=== PATIENT | male | born 1955 | race Caucasian/White ===

== ENCOUNTER 2017-05-06 15:34 | Observation (INO) | payer MEDICARE ==
[~2017-05-06] VITALS: Ht 172.7 cm; Wt 74.8 kg
[2017-05-06] MEDS ORDERED: MORPHINE SULFATE 4 MG/ML CPJ (NOT FOR IM USE) IV STA (18:30)
[2017-05-06] MEDS ORDERED: LORAZEPAM 1MG TABLET PO ONE (18:30)
[2017-05-06] MEDS ORDERED: SODIUM CHLORIDE 0.9% 1,000 ML IV ONE (18:30)
[2017-05-06] MEDS ORDERED: ONDANSETRON HCL 4MG/2ML VIAL IV STA (18:30)
[2017-05-06] MEDS ORDERED: ASPIRIN 81MG TABLET PO STA (18:30)
[2017-05-06 19:04] LABS: BASOPHILS % 0.9 % (0.0-2.0); EOSINOPHILS % 1.4 % (0.0-5.0); HEMATOCRIT. 46.2 % (42.0-52.0); HEMOGLOBIN. 15.6 g/dL (14.0-18.0); LYMPHOCYTES % 15.2 % (20.0-50.0); MEAN CORPUSCULAR HEMOGLOBIN 30.9 pg (28.0-32.0); MEAN CORPUSCULAR VOLUME 91.3 fL (80.0-94.0); MEAN PLATELET VOLUME 7.6 fl (7.4-10.4); MONOCYTES % 8.3 % (2.0-8.0); NEUTROPHILS % 74.2 % (40.0-76.0); PLATELET 330 x1000/uL (130-400); RED BLOOD CELL COUNT 5.06 mill/uL (4.7-6.1); RED CELL DISTRIBUTION WIDTH 13.6 % (11.6-14.6)
[2017-05-06 19:08] LABS: CHLORIDE 105 mEq/L (98-107)
[2017-05-06 19:13] LABS: CARBON DIOXIDE 28 mEq/L (21-32)
[2017-05-06 19:18] LABS: INR 1.1; PARTIAL THROMBOPLASTIN TIME 25.6 sec (23.4-31.0)
[2017-05-06 19:20] LABS: TROPONIN I < 0.02 ng/mL (0.00-0.04)
[2017-05-07] VITALS (8 sets, daily range): BP systolic 136–153; BP diastolic 82–101
[2017-05-07] MEDS ORDERED: ACETAMINOPHEN 325MG TABLET PO NR (01:15)
[2017-05-07] MEDS ORDERED: HYDROCODONE/ACETAMINOPHEN 5/325MG TABLET PO PRN (01:45)
[2017-05-07] MEDS: METOPROLOL TARTRATE 50MG TABLET PO SCH ×2 (02:04→08:22)
[2017-05-07 02:33] LABS: CREATINE KINASE 291 IU/L (39-308); TROPONIN I < 0.02 ng/mL (0.00-0.04)
[2017-05-07 02:34] LABS: CREATINE KINASE MB FRACTION 5.6 ng/mL (0.5-3.6)
[2017-05-07] MEDS: PANTOPRAZOLE 40MG DR TABLET PO SCH ×2 (06:54→08:22)
[2017-05-07 07:31] LABS: CREATINE KINASE 241 IU/L (39-308); TROPONIN I < 0.02 ng/mL (0.00-0.04)
[2017-05-07] MEDS ORDERED: ASPIRIN 325MG EC TABLET PO SCH (09:00)
[2017-05-07] MEDS ORDERED: ENOXAPARIN 40MG/0.4ML SYR SUBCUT SCH (09:00)
[2017-05-07] MEDS ORDERED: REGADENOSON 0.4 MG/5 ML IV NR (12:30)
== END 2017-05-07 20:00 | disposition left against medical advice (07) ==
LOC: ER 15:44 → 8WST 21:34 → INTOOBSV 21:34 → EDBEDREQ 21:37 → EDBEDREQTM 21:37 → ENRESERV 22:07
PROVIDERS: ADMIT Internal Medicine; ATTEND Internal Medicine
DX: R07.89 Other chest pain (principal)
CPT/HCPCS: 36415; 71010; 80053; 80061; 82550; 82553; 83690; 83880; 84443; 84484; 85025; 85610; 85730; 93005; 93306; 96361; 96372; 96374; 96375; 99285; G0378; G0482; J1650; J2270; J2405; J2785; J7030

== ENCOUNTER 2017-05-08 04:05 | Emergency (ER) | payer MEDICARE ==
[~2017-05-08] VITALS: Ht 172.7 cm; Wt 75.0 kg
[2017-05-08 04:10] VITALS: BP 148/89
== END 2017-05-08 06:00 | disposition left against medical advice (07) ==
LOC: ER 04:06
DX: R07.9 Chest pain, unspecified (principal); Z53.21 Procedure and treatment not carried out due to patient leaving prior to being seen by health care provider

== ENCOUNTER 2017-05-29 18:33 | Emergency (ER) | payer MEDICARE ==
[~2017-05-29] VITALS: Ht 172.7 cm; Wt 73.0 kg
[2017-05-29] MEDS ORDERED: HYDROCODONE/ACETAMINOPHEN 5/325MG TABLET PO ONE (20:00)
[2017-05-29 21:20] VITALS: BP 147/99
== END 2017-05-29 22:05 | disposition home or self-care (01) ==
LOC: ER 19:52
DX: S80.11XA Contusion of right lower leg, initial encounter (principal); F17.210 Nicotine dependence, cigarettes, uncomplicated; V29.88XA Motorcycle rider (driver) (passenger) injured in other specified transport accidents, initial encounter; Y93.55 Activity, bike riding; Y92.89 Other specified places as the place of occurrence of the external cause; Y99.8 Other external cause status
CPT/HCPCS: 73590; 73610; 73620; 99284; Z7610